=== PATIENT | male | born 1960 | race Caucasian/White ===

== ENCOUNTER → 2016-12-27 | Outpatient (CLI) | payer OTHER ==
[~2016-12-27] MED LIST: ATOR-22 PO; CHOL100010 PO; COEN75CA PO; MULT-506 PO
[2016-12-27 12:14] LABS: BASO % 0.2 %; BASO ABS # 0.01 K/uL (0-0.2); COMPLETE YES; EOS % 5.5 %; HEMATOCRIT 43.4 % (42-52); IG% 0.2 %; LYMPH % 25.2 %; LYMPH ABS # 1.06 K/uL (1.2-3.4); MEAN CELL VOLUME 91.4 fL (80-100); MEAN CORPUSCULAR HEMOGLOBIN 30.7 pg (25-34); MEAN CORPUSCULAR HGB CONC 33.6 g/dl (32-36); MEAN PLATELET VOLUME 10.8 fL (7.4-10.4); MONO % 7.4 %; NEUT % 61.5 %; PLATELET COUNT 201 K/uL (130-400); RED BLOOD COUNT 4.75 M/uL (4.7-6.1); WHITE BLOOD COUNT 4.21 K/uL (4.8-10.8)
[2016-12-27 12:27] LABS: PROSTATE SPECIFIC ANTIGEN 0.889 ng/ml (0.000-4.000)
[2016-12-27 12:29] LABS: ESTIMATED AVERAGE GLUCOSE 120 mg/dl; HA1C FLAG Normal (Normal)
[2016-12-27 13:11] LABS: URINE APPEARANCE CLEAR (CLEAR); URINE BILIRUBIN NEG (NEG); URINE COLOR DK YELLOW; URINE NITRITE NEG (NEG); URINE SPECIFIC GRAVITY 1.027 (1.000-1.030); UROBILINOGEN NEG (NEG); ZZUR CULT IF INDIC CLEAN CATCH NO
[2016-12-27 13:20] LABS: MANUAL MICROSCOPIC REQUIRED? NO; REVIEW REQ? NO
== END | disposition home or self-care (01) ==
LOC: C.LABBFT 07:26
PROVIDERS: ATTEND Internal Medicine
DX: D72.819 Decreased white blood cell count, unspecified (principal); R73.03 Prediabetes; Z12.5 Encounter for screening for malignant neoplasm of prostate

== ENCOUNTER → 2017-07-12 | Outpatient (CLI) | payer OTHER ==
[2017-07-12 12:22] LABS: BASO % 0.3 %; BASO ABS # 0.01 K/uL (0-0.2); COMPLETE YES; EOS % 5.7 %; HEMATOCRIT 43.8 % (42-52); IG% 0.3 %; LYMPH % 23.8 %; LYMPH ABS # 0.88 K/uL (1.2-3.4); MEAN CELL VOLUME 90.7 fL (80-100); MEAN CORPUSCULAR HEMOGLOBIN 31.3 pg (25-34); MEAN CORPUSCULAR HGB CONC 34.5 g/dl (32-36); MEAN PLATELET VOLUME 11.6 fL (7.4-10.4); MONO % 10.8 %; NEUT % 59.1 %; PLATELET COUNT 186 K/uL (130-400); RED BLOOD COUNT 4.83 M/uL (4.7-6.1); WHITE BLOOD COUNT 3.69 K/uL (4.8-10.8)
[2017-07-12 12:41] LABS: ESTIMATED AVERAGE GLUCOSE 120 mg/dl; HA1C FLAG Normal (Normal)
== END | disposition home or self-care (01) ==
LOC: C.LABBFT 07:12
PROVIDERS: ATTEND Internal Medicine
DX: R73.03 Prediabetes (principal); D72.819 Decreased white blood cell count, unspecified

== ENCOUNTER → 2017-08-15 | Outpatient (CLI) | payer OTHER ==
[2017-08-15 17:27] LABS: BASO % 0.2 %; BASO ABS # 0.01 K/uL (0-0.2); COMPLETE YES; EOS % 5.1 %; IG% 0.2 %; LYMPH % 26.2 %; MEAN CELL VOLUME 90.9 fL (80-100); MEAN CORPUSCULAR HEMOGLOBIN 31.1 pg (25-34); MEAN CORPUSCULAR HGB CONC 34.2 g/dl (32-36); MEAN PLATELET VOLUME 11.4 fL (7.4-10.4); MONO % 8.8 %; NEUT % 59.5 %; PLATELET COUNT 209 K/uL (130-400); RED BLOOD COUNT 4.73 M/uL (4.7-6.1); WHITE BLOOD COUNT 5.34 K/uL (4.8-10.8)
== END | disposition home or self-care (01) ==
LOC: C.LABBFT 13:49
PROVIDERS: ATTEND Physician Assistant Medical
DX: D72.819 Decreased white blood cell count, unspecified (principal)

== ENCOUNTER → 2017-10-05 | Outpatient (CLI) | payer OTHER ==
[2017-10-05 12:43] LABS: BLOOD UREA NITROGEN 16 mg/dl (7-18); CALCIUM 9.2 mg/dl (8.5-10.1); CARBON DIOXIDE 28 mmol/L (21-32); GLUCOSE 100 mg/dl (70-99); SODIUM 136 mmol/L (136-145)
== END | disposition home or self-care (01) ==
LOC: C.LABBFT 07:07
PROVIDERS: ATTEND Internal Medicine
DX: Z11.59 Encounter for screening for other viral diseases (principal); I10 Essential (primary) hypertension

== ENCOUNTER → 2017-11-30 | Outpatient (CLI) | payer OTHER ==
[~2017-11-30] VITALS: Ht 180.3 cm; Wt 97.4 kg
[2017-11-30 09:41] VITALS: BP 148/88; PULSE 61; Ht 180.3 cm; Wt 97.4 kg
== END | disposition home or self-care (01) ==
LOC: C.NEUR 08:15
PROVIDERS: ATTEND Internal Medicine Pulmonary Disease
DX: G47.33 Obstructive sleep apnea (adult) (pediatric) (principal)

== ENCOUNTER → 2017-12-28 | Outpatient (CLI) | payer OTHER ==
--- NOTE | 2017-12-29 07:42 | PAP/PSG TECHNICIAN REPORT ---
[facility] Social Work Manager Polysomnogram Report Study name: None Report date: 12/29/2017 Study date: 12/28/2017 Referring Physician: MEREDITH VELASCO M.D. Name: OLEKSANDR DIAZ Interpreting Physician: Jason Alvarado D.O. Date of : 1960 Social Work Manager: Jessie Lomeli, PSGT. Sex: Male Age: 57 StudyType: PSG Weight: 214 lbs Height: 57 years, Height 5' 11" Neck Circum:17 inches BMI: 29.84 Medications: Viagra, Proctosol, COQ-10, Multi-Vit., Vit.-D3, Losartan, Atrovastatin. Patient History 57 year old male presents for snoring witnessed gasping and apnea's = 12, Neck = 17 inches. Parameters Monitored NPSG: E1-M2, E2-M1, Fp1-M2, Fp2-M1, F3-M2, F4-M2, F4-M1, C3-M2, C4-M2, C4-M1, O1-M2, O2-M2, O2-M1, T3-M2, T4-M1, P3-M2, P4-M1, CHIN1, CHIN2, HR, EKG, Legs, PFLOW, SNOR, FLOW, CFLOW, Tidal Volume, THOR, ABDO, SpO2, PLTH, CPRESS, ETCO2 Wave, ETCO2, pH Sleep Architecture Sleep Stages Time at Lights Off 10:46:49 PM STAGES Time (min.) TST (%) Time at Lights On 5:31:19 AM Wake 68.5 -- Total Recording Time (TRT) 405.00 min. N1 35.5 11 Total Sleep Period (TSP) 391.5 min. N2 218.5 65 Total Sleep Time (TST) 336.0min. N3 23.0 7 Awake Time 68.5 min. REM 59.0 18 Wake after Sleep Onset 55.5 min. Sleep Efficiency (SE) 83 % Sleep Onset Latency (BRIANA) 13.0 min. Number of Stage 1 Shifts None Awakenings 20 Stage Changes 64 Number of REM periods 2 REM 59.0 18 REM Latency 136.0 min. NREM 277.0 82 Body Position Analysis Supine Right Left Side Prone Vertical Total Sleep Time (min.) 277.7 0.0 101.3 101.25 0.0 0.0 Total Sleep Time (%) 70% 0% 30% 30 0% N/A% Total Sleep Time REM (min.) 59.0 0.0 0.0 None 0.0 0.0 Total Sleep Time NREM (min.) 175.7 0.0 101.3 None 0.0 0.0 Intermittent Wake (min.) 43.0 0.0 25.5 None 0.0 0.0 Total Sleep Period (%) 71% None None None None None Arousals Myoclonus (PLM) * Events Count Index Events Count Index Spontaneous 53 9 Events Awake (PLMW) 1 0.9 Respiratory 7 1.3 Events Asleep w/ Arousal (PLMA) 1 0.2 PLM 1 0 Events Asleep w/o Arousal (PLMS) 28 5.0 Snoring 10 2 Total Asleep 29 5.2 Total 71 13 Total 30 4 Respiratory Analysis * CA OA MA CH H RERA Total Count 0 0 0 0 36 0 36 Index 0.0 0.0 0.0 0 6.4 0 6.4 Mean Duration 0.0 0.0 0.0 0.00 18.6 0.0 18.6 Longest Duration 0.0 0.0 0.0 0.00 0.0 0.0 43.7 Respiratory Event Summary Total Supine ~Supine Right Left Prone REM NREM Apneas Count 0 0 0 N/A 0 N/A 0 0 Index 0.0 0 0 N/A 0.0 N/A 0 0 Hypopneas (4% Desat) Count 36 34 2 N/A 2 N/A 3 33 Index 6.4 8.7 1 N/A 1.2 N/A 3.1 7.1 Apneas & All Hypopneas Count 36 34 2 N/A 2 N/A 3 33 Index 6.4 9 1 N/A 1 N/A 3.1 7.1 Respiratory Events (Senior Business Architect+All Hyp+RERA) Count 36 34 2 N/A 2 N/A 3 33 Index 6.4 9 1 N/A 1.2 N/A 3.1 7.1 Respiratory Related Arousal Count 7 34 1 N/A 1 N/A 0 7 Index 1.3 2 1 N/A 1 N/A 0 2 Snoring Analysis Supine Right Left Prone REM NREM Total Snore duration 17.6 min Snores count 430 N/A 260 N/A 51 639 690 Snore mean duration 1.5 Sec Snores index 110 N/A 154 N/A 51.9 138.4 123.2 TST with snoring (%) 5.2% Desaturation Event Summary: Minimum %SpO2 Event Count Mean/Min/Max Duration(sec.) Desaturation Index % Time In Bed > 90 47 21.0 / 5.5 / 50.0 7.4 95.3 86 - 90 1 11.0 / 11.0 / 11.0 4.1 3.7 81 - 85 0 N/A 0.0 0.4 76 - 80 0 N/A 0.0 0.7 71 - 75 0 N/A 0.0 0.0 66 - 70 0 N/A 0.0 0.0 61 - 65 0 N/A 0.0 0.0 56 - 60 0 N/A 0.0 0.0 51 - 55 0 N/A 0.0 0.0 < 50 0 N/A 0.0 0.0 Total REM NREM Awake <50% 0.0 min. 0.0 min. 0.0 min. 0.0 min. 51 - 60% 0.0 min. 0.0 min. 0.0 min. 0.0 min. 61 - 70% 0.0 min. 0.0 min. 0.0 min. 0.0 min. 71 - 80% 2.6 min. 0.0 min. 2.6 min. 0.0 min. 81 - 90% 16.1 min. 1.4 min. 12.5 min. 2.1 min. 91 - 100% 380.7 min. 57.5 min. 259.1 min. 64.1 min. Average 93 94 93 94 Minimum SpO2 76 89 76 83 Desaturation Event Index 7.0 4.1 9.3 0.9 # Desat. Events below 89% 16 N/A 16 N/A Time(%) with Saturation below 89% 1.8 0.0 1.6 0.2 Time(min.) with Saturation below 89% 7.2 0.0 6.4 0.9 Time (mins) REM (mins) NREM (mins) % of TST SpO2 Below 90% 42 3 N39 2.6 SpO2 Below 88% 6 0 0 2 Heart Rate Analysis Min (bpm) Max (bpm) Average (bpm) Awake 47 127 58 NREM 49 127 56 REM 47 68 54 Overall 47 127 55 Supplemental O2 Values Minimum O2 level: None Value Start Time End Time Social Work Manager Comments . PSG Study slept in the right, left, and supine positions. No cardiac arrhythmia or PLM's noted. No bruxism noted. Snoring was noted and scored as a 2 on a scale of 1 through 5. (0=no snoring, 5=snoring loud enough to be heard through a closed door or down the [address] way). Mr. Diaz stated, I did not sleep as well as I do when I am in my own bed. The final report will be interpreted and signed by a sleep physician. The completed physician report will then be placed in the patient medical record Therapy (cm H2O) 0 TIB (min.) 404.5 TST (min.) 336.0 Sleep Onset (min.) 13.0 REM Onset From Sleep (min.) 136.0 Sleep Efficiency % 83 Wakefulness (%) 17 Wakefulness (min.) 68.5 NREM 1 (%) 11 NREM 1 (min.) 35.5 NREM 2 (%) 65 NREM 2 (min.) 218.5 NREM 3 (%) 7 NREM 3 (min.) 23.0 REM (%) 18 REM (min.) 59.0 # Arousals 71 Arousal Index 13 # Snore 690 Snore Index 123.2 AHI 6.4 AHI Supine 9 AHI Non-Supine 1 NREM AHI 7.1 REM AHI 3.1 RDI 6.4 # Obstructive Apnea 0 # Central Apnea 0 # Mixed Apnea 0 # Hypopneas 36 RERAs 0 Total Respiratory Events 46 Time Below SpO2 89% (min.) 6.4 Mean NREM SpO2 (%) 93 Mean REM SpO2 (%) 94 Mean Sleep SpO2 (%) 93 Min NREM SpO2 (%) 76 Min REM SpO2 (%) 89 Position Supine (min.) 277.7 Position Non-supine (min.) 101.3 LM Index Sleep 5.2 LM Index NREM 5.4 LM Index REM 4.1 Mean Heart Rate (bpm) 55 Min Heart Rate (bpm) 47
--- NOTE | 2018-01-03 12:53 | POLYSOMNOGRAPH REPORT ---
CLINICAL DATA: The patient is a 57-year-old male with a history of snoring, observed apneas, and a history of hypertension and diabetes. He has an Igo score of 12. This was an in-lab overnight polysomnography. SLEEP ARCHITECTURE: The total sleep time was 336 minutes. The total sleep period was 391.5 minutes. Sleep efficiency was mildly reduced to 83%. The sleep latency was normal at 13 minutes. Wake after sleep onset was increased to 55.5 minutes. The REM latency was prolonged to 136 minutes. There were 2 REM periods during the night. Sleep consisted of stage N1 11%, stage N2 65%, stage N3 7%, stage REM 18%. AROUSAL DATA: The patient had a total of 71 arousals including 53 spontaneous arousals, 7 respiratory arousals, 1 PLM arousal, and 10 snoring arousals. The arousal index was 13. PLM DATA: The patient had a total of 29 periodic limb movements of sleep for a PLM index of 5.2. There was 1 arousal associated with limb movements for a PLM arousal index of 0.2. EKG: The cardiac rates ranged from 47-68 beats per minute. The average heart rate was 55 beats per minute. No arrhythmias noted. RESPIRATORY DATA: The patient had a total of 36 respiratory events, all hypopneas. Hypopneas were scored according to the 4% desaturation rule. The mean duration of the hypopneas was 18.6 seconds. The apnea-hypopnea index was mildly elevated at 6.4 events per hour. This would reflect mild sleep apnea. OXIMETRY DATA: The average saturation for the night was 93%. The minimum saturation was 76%. There was a total of 7.2 minutes with saturations less than 89%. SYSTEMS TECHNOLOGIST COMMENTS: The patient slept in the right, left, and supine positions. No cardiac arrhythmia noted. No bruxism noted. Snoring was noted and scored as a 2 on a scale of 1 through 5. The patient stated he did not sleep as well as he does in his own bed. IMPRESSION: Mild obstructive sleep apnea. COMMENTS: The patient has mild apnea. All of the events were partials. Most of the events occurred within the final hour of sleep. There was some transient desaturation earlier in the night which may have been artifact. He does have a history of hypertension and prediabetes. In light of this, I would suggest treatment. RECOMMENDATIONS: 1. It is suggested that the patient be treated with nasal CPAP. This could be accomplished by an in-lab CPAP titration versus treatment with Auto Cpap. 2. Weight loss is advised in light of the elevation of body mass index at 29.84. 3. The patient should avoid sleeping in the supine position as there were typically more respiratory events and snoring while supine. 4. If the patient does not wish treatment with nasal CPAP, consideration could be given to an oral appliance. MTDD
== END | disposition home or self-care (01) ==
LOC: C.NEUR 21:00
PROVIDERS: ATTEND Internal Medicine Pulmonary Disease
DX: G47.33 Obstructive sleep apnea (adult) (pediatric) (principal)

== ENCOUNTER → 2018-03-21 | Outpatient (CLI) | payer OTHER ==
[2018-03-21 12:33] LABS: BASO % 0.2 %; BASO ABS # 0.01 K/uL (0-0.2); EOS % 4.8 %; EOS ABS # 0.24 K/uL (0-0.5); HEMATOCRIT 42.9 % (42-52); HEMOGLOBIN 14.5 g/dL (14.0-18.0); IG# 0.01 K/uL (0.00-0.02); LYMPH % 28.2 %; LYMPH ABS # 1.42 K/uL (1.2-3.4); MEAN CELL VOLUME 92.1 fL (80-100); MEAN CORPUSCULAR HEMOGLOBIN 31.1 pg (25-34); MEAN CORPUSCULAR HGB CONC 33.8 g/dl (32-36); MEAN PLATELET VOLUME 11.2 fL (7.4-10.4); MONO % 9.1 %; MONO ABS # 0.46 K/uL (0.11-0.59); NEUT % 57.5 %; NEUT ABS # 2.89 K/uL (1.4-6.5); PLATELET COUNT 218 K/uL (130-400); RED CELL DISTRIBUTION WIDTH CV 12.9 % (11.5-14.5); RED CELL DISTRIBUTION WIDTH SD 43.2 fL (36.4-46.3); WHITE BLOOD COUNT 5.03 K/uL (4.8-10.8)
== END | disposition home or self-care (01) ==
LOC: C.LABBFT 08:49
PROVIDERS: ATTEND Internal Medicine
DX: D64.9 Anemia, unspecified (principal)

== ENCOUNTER → 2018-04-12 | Outpatient (CLI) | payer OTHER ==
[~2018-04-12] VITALS: Ht 180.3 cm; Wt 97.5 kg
[2018-04-12 13:31] VITALS: BP 131/79; PULSE 76; Ht 180.3 cm; Wt 97.5 kg
== END | disposition home or self-care (01) ==
LOC: C.NEUR 13:16
PROVIDERS: ATTEND Physician Assistant
DX: G47.33 Obstructive sleep apnea (adult) (pediatric) (principal)